=== PATIENT | female | born 1990 | race Caucasian/White ===

== ENCOUNTER → 2018-03-20 | Outpatient (CLI) | payer BC, OTHER ==
--- NOTE | 2018-03-20 16:27 | US ---
EXAMINATION TYPE: US venous doppler duplex LE DATE OF EXAM: 03/20/2018 7:19 AM COMPARISON: NONE CLINICAL HISTORY: G25.81 Restless leg syndrome. SIDE PERFORMED: Bilateral TECHNIQUE: The lower extremity deep venous system is examined utilizing real time linear array sonog raheem with graded compression, doppler sonography and color-flow sonography. VESSELS IMAGED: External Iliac Vein (EIV) Common Femoral Vein Deep Femoral Vein Greater Saphenous Vein * Femoral Vein Popliteal Vein Small Saphenous Vein * Proximal Calf Veins (* superficial vessels) Right Leg: Negative for DVT Left Leg: Negative for DVT IMPRESSION: 1. Bilateral lower extremity ultrasound negative for deep venous thrombosis.
== END | disposition home or self-care (01) ==
LOC: RADUSWWP 06:54
PROVIDERS: ATTEND Family Medicine
DX: G25.81 Restless legs syndrome (principal)
CPT/HCPCS: 93970

== ENCOUNTER → 2018-03-28 | Outpatient (CLI) | payer BC, OTHER ==
[2018-03-28 07:30] LABS: Basophils # (A) 0.1 k/uL (0-0.2); Basophils % (A) 1 %; Eosinophils # (A) 0.2 k/uL (0-0.7); Eosinophils % (A) 2 %; HCT 38.1 % (34.0-46.0); HGB 12.8 gm/dL (11.4-16.0); Lymphocytes # (A) 4.5 k/uL (1.0-4.8); Lymphocytes % (A) 43 %; MCH 30.1 pg (25.0-35.0); MCHC 33.6 g/dL (31.0-37.0); MCV 89.3 fL (80.0-100.0); Mean Platelet Volume 6.1; Monocytes # (A) 0.5 k/uL (0-1.0); Monocytes % (A) 4 %; Neutrophils # (A) 5.1 k/uL (1.3-7.7); Neutrophils % (A) 49 %; Platelet Count 349 k/uL (150-450); RBC 4.27 m/uL (3.80-5.40); RDW 13.1 % (11.5-15.5); WBC 10.5 k/uL (3.8-10.6)
[2018-03-28 11:06] LABS: Erythrocyte Sedimentation Rate 19 mm/hr (0-20)
[2018-03-28 11:18] LABS: Iron Saturation 18.18 (12.00-45.00)
[2018-03-28 11:26] LABS: Vitamin D 25 Hydroxy 19.2 ng/mL (30.0-100.0)
[2018-03-28 12:56] LABS: T4, Free (Free Thyroxine) 0.9 ng/dL (0.80-1.80)
[2018-03-28 13:49] LABS: Albumin 4.3 g/dL (3.80-4.90); Albumin/Globulin Ratio 1.79 (1.60-3.17); Anion Gap 6.7 mmol/L (4.00-12.00); C Reactive Protein 0.8 mg/dL (0.0-0.8); Calcium 9.2 mg/dL (8.7-10.3); Carbon Dioxide 27.3 mmol/L (21.6-31.8); Globulin 2.4 g/dL (1.6-3.3); LDL Cholesterol,Calculated 51.8 mg/dL (0.0-131.0); Potassium 4.2 mmol/L (3.5-5.5); Total Bilirubin 0.3 mg/dL (0.3-1.2); Total Protein 6.7 g/dL (6.2-8.2); VLDL Calculation 23.2 mg/dL (5.00-40.00)
== END ==
LOC: LABWHC1 06:45
PROVIDERS: ATTEND Nurse Practitioner Family
DX: Z00.00 Encounter for general adult medical examination without abnormal findings (principal); E55.9 Vitamin D deficiency, unspecified; G25.81 Restless legs syndrome; M25.50 Pain in unspecified joint
CPT/HCPCS: 36415; 80053; 80061; 82306; 82550; 82728; 83540; 83550; 83735; 84439; 84443; 85025; 85652; 86140

== ENCOUNTER 2020-01-16 06:11 | Emergency (ER) | payer BC, OTHER ==
--- NOTE | 2020-01-16 06:55 | ED ---
Chest Pain HPI - General Chief Complaint: Chest Pain Stated Complaint: Chest Pain, DIEGO Time Seen by Provider: 01/16/20 06:29 Source: patient, family, RN notes reviewed Mode of arrival: ambulatory Limitations: no limitations - History of Present Illness Initial Comments: This is a 29-year-old female presents emergency Department with chief complaint of chest discomfort. Patient states started around 11:00 last night. 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 Patient states she is scheduled for an echo and stress test. Patient states that she's had palpitations, elevated heart rate which she states she has an abnormal EKG because of it. Patient states that she has no history of PE or DVT. Patient states she has fibromyalgia and she was being worked up for lupus. Patient denies any chance no abdominal pain or swelling no leg pain or swelling patient appears chills no cough URI symptoms. She states she has a chest tightness type pain at this time is nonradiating - Related Data Home Medications Medication Instructions Recorded Confirmed Albuterol Sulfate [Proair Hfa] 1 - 2 puff INHALATION DAILY PRN 11/14/17 11/14/17 Cyclobenzaprine [Flexeril] 10 mg PO TID 11/14/17 11/14/17 Naproxen [Naprosyn] 500 mg PO Q12HR PRN 11/14/17 11/14/17 Pantoprazole Sodium [Protonix] 40 mg PO DAILY 11/14/17 11/14/17 SUMAtriptan SUCCINATE [Sumavel 6 mg SQ DAILY PRN 11/14/17 11/14/17 Dosepro] SUMAtriptan succinate [Sumatriptan 1 dose PO DAILY PRN 11/14/17 11/14/17 Succinate] Allergies Allergy/AdvReac Type Severity Reaction Status Date / Time bupropion [From Wellbutrin] Allergy Rash/Hives Verified 01/16/20 06:25 metronidazole [From Flagyl] Allergy Rash/Hives Verified 01/16/20 06:25 Review of Systems ROS Statement: Those systems with pertinent positive or pertinent negative responses have been documented in the HPI. ROS Other: All systems not noted in ROS Statement are negative. EKG Findings - EKG Comments: EKG Findings:: EKG performed at 6:34 normal sinus rhythm with rate of 79 MN 18 QRS 92 QT/QTC 384/440 Past Medical History Past Medical History: Asthma, GERD/Reflux, Neurologic Disorder Additional Past Medical History / Comment(s): MIGRAINES. IBS History of Any Multi-Drug Resistant Organisms: None Reported Past Surgical History: Cholecystectomy Past Anesthesia/Blood Transfusion Reactions: No Reported Reaction Past Psychological History: No Psychological Hx Reported Smoking Status: Never smoker Past Alcohol Use History: None Reported Past Drug Use History: None Reported - Past Family History Father Family Medical History: Cancer General Exam Limitations: no limitations General appearance: alert, in no apparent distress Head exam: Present: atraumatic, normocephalic, normal inspection Eye exam: Present: normal appearance, PERRL, EOMI. Absent: scleral icterus, conjunctival injection, periorbital swelling ENT exam: Present: normal exam, normal oropharynx, mucous membranes moist Neck exam: Present: normal inspection, full ROM. Absent: tenderness, meningi smus, lymphadenopathy Respiratory exam: Present: normal lung sounds bilaterally. Absent: respiratory distress, wheezes, rales, rhonchi, stridor Cardiovascular Exam: Present: regular rate, normal rhythm, normal heart sounds. Absent: systolic murmur, diastolic murmur, rubs, gallop, clicks GI/Abdominal exam: Present: soft, normal bowel sounds. Absent: distended, tenderness, guarding, rebound, rigid Extremities exam: Absent: pedal edema, calf tenderness Neurological exam: Present: alert, oriented X3 Skin exam: Present: warm, dry, intact, normal color. Absent: rash Course Vital Signs 01/16/20 06:15 Temperature 98.3 F Pulse Rate 84 Respiratory 20 Rate Blood Pressure 143/93 O2 Sat by Pulse 100 Oximetry Chest Pain MDM - MDM 29-year-old presented for chest pain. Patient did have x-ray which is unremarkable, labs did reveal mildly elevated d-dimer, CT was performed to rule out PE at this time which shows no evidence of PE. States his been having on and off symptoms for several months. Patient is scheduled for echo and stress test palpation. Patient has no major risk factors. Patient workup is negative including troponin, EKG and electrolytes. Patient states she feels comfortable discharge symptoms are resolving. Disposition Clinical Impression: Atypical chest pain Disposition: HOME SELF-CARE Condition: Stable Instructions (If sedation given, give patient instructions): Chest Pain (ED) Additional Instructions: Please return to the Emergency Department if symptoms worsen or any other concerns. Is patient prescribed a controlled substance at d/c from ED?: No Referrals: Raman Armando MD [Primary Care Provider] - 1-2 days Time of Disposition: 08:38
[2020-01-16 07:09] LABS: Basophils # (A) 0.1 k/uL (0-0.2); Basophils % (A) 1 %; Eosinophils # (A) 0.2 k/uL (0-0.7); Eosinophils % (A) 2 %; HCT 39.5 % (34.0-46.0); HGB 13.9 gm/dL (11.4-16.0); Lymphocytes # (A) 4.6 k/uL (1.0-4.8); Lymphocytes % (A) 41 %; MCH 30.6 pg (25.0-35.0); MCHC 35.1 g/dL (31.0-37.0); Monocytes # (A) 0.5 k/uL (0-1.0); Monocytes % (A) 4 %; Neutrophils # (A) 5.7 k/uL (1.3-7.7); Neutrophils % (A) 51 %; Platelet Count 340 k/uL (150-450); RBC 4.54 m/uL (3.80-5.40); RDW 13.3 % (11.5-15.5); WBC 11.2 k/uL (3.8-10.6)
[2020-01-16 07:14] LABS: ALT 23 U/L (4-34); AST 25 U/L (14-36); African American GFR (CKD) >90 (>60 ml/min/1.73 sqM); Albumin 4.4 g/dL (3.5-5.0); Alkaline Phosphatase 105 U/L (38-126); Anion Gap 8 mmol/L; Blood Urea Nitrogen 15 mg/dL (7-17); Carbon Dioxide 24 mmol/L (22-30); Chloride 104 mmol/L (98-107); Glucose 130 mg/dL (74-99); Lipase 224 U/L (23-300); Magnesium 2.1 mg/dL (1.6-2.3); Non-African American GFR(CKD) >90 (>60 ml/min/1.73 sqM); Potassium 3.6 mmol/L (3.5-5.1); Sodium 136 mmol/L (137-145); Total Bilirubin 0.4 mg/dL (0.2-1.3); Total Protein 7.6 g/dL (6.3-8.2)
--- NOTE | 2020-01-16 07:18 | XR ---
EXAMINATION TYPE: XR chest 2V DATE OF EXAM: 01/16/2020 COMPARISON: 07/17/2019 HISTORY: Chest pain TECHNIQUE: Frontal and lateral views of the chest are obtained. FINDINGS: There is no focal air space opacity. No evidence for pneumothorax. No pleural effusion. The cardiac silhouette size is within normal limits. The osseous structures are grossly intact. IMPRESSION: 1. No acute cardiopulmonary process.
[2020-01-16 07:24] LABS: INR 0.9 (<1.2)
[2020-01-16 07:25] LABS: Partial Thromboplastin Time 23.9 sec (22.0-30.0); Prothrombin Time 9.4 sec (9.0-12.0)
[2020-01-16 07:35] LABS: D-Dimer 0.83 mg/L FEU (<0.60)
--- NOTE | 2020-01-16 08:30 | CT ---
EXAMINATION TYPE: CT chest angio for PE DATE OF EXAM: 01/16/2020 COMPARISON: None HISTORY: SOB, chest pain CT DLP: 502.4 mGycm CONTRAST: CT chest with contrast and 3D reconstruction with MIP imaging is performed with IV Contrast, patient injected with 100 mL of Isovue 300. Contrast-enhanced CT of the chest was performed through the course of the pulmonary arteries with jacklyn g and mediastinal window settings submitted. 3D reconstruction with MIP imaging was also performed. PULMONARY ARTERIES: The pulmonary arteries and their major tributaries are patent. I do not see keke dence for sizable filling defect to suggest pulmonary embolic process. LUNGS: The lungs are clear and free of infiltrate. No evidence for atelectasis. No pulmonary nodule or mass is detected. No pleural effusion. MEDIASTINUM: Thoracic aorta is of normal caliber,however, evaluation is limited given timing of the contrast bolus. If there is concern for thoracic aortic pathology consider MELLISSA. Correlate clinicall y . The heart is not enlarged. No evidence for mediastinal mass. No mediastinal lymph nodes greater than 1cm. HILAR STRUCTURES: No evidence for mass. No hilar lymph nodes greater than 1 cm. UPPER ABDOMEN: No significant abnormality is seen. IMPRESSION: 1. No evidence for Pulmonary embolism at this time.
[2020-01-16 08:54] VITALS: BP 114/87; PULSE 70; RESP 18; TEMP 98
== END 2020-01-16 08:54 | disposition home or self-care (01) ==
LOC: EC 06:11
DX: R07.89 Other chest pain (principal); R79.89 Other specified abnormal findings of blood chemistry; J45.909 Unspecified asthma, uncomplicated; K21.9 Gastro-esophageal reflux disease without esophagitis; G43.909 Migraine, unspecified, not intractable, without status migrainosus; K58.9 Irritable bowel syndrome, unspecified; R00.2 Palpitations; M79.7 Fibromyalgia; R00.0 Tachycardia, unspecified; Z79.899 Other long term (current) drug therapy; Z79.51 Long term (current) use of inhaled steroids; Z79.1 Long term (current) use of non-steroidal anti-inflammatories (NSAID); Z88.8 Allergy status to other drugs, medicaments and biological substances; Z88.1 Allergy status to other antibiotic agents
CPT/HCPCS: 99285; 36415; 93005; 85379; 80053; 83690; 83735; 84484; 85025; 85610; 85730; 81025; 71046; 71275; Q9967

== ENCOUNTER → 2020-03-08 | Outpatient (CLI) | payer BC ==
[2020-03-08 09:35] LABS: Basophils # (A) 0.1 k/uL (0-0.2); Basophils % (A) 1 %; Eosinophils # (A) 0.1 k/uL (0-0.7); Eosinophils % (A) 0 %; HCT 39.4 % (34.0-46.0); HGB 13.1 gm/dL (11.4-16.0); Lymphocytes # (A) 5.7 k/uL (1.0-4.8); Lymphocytes % (A) 35 %; MCH 29.5 pg (25.0-35.0); MCHC 33.2 g/dL (31.0-37.0); MCV 88.8 fL (80.0-100.0); Mean Platelet Volume 6.9; Monocytes # (A) 0.9 k/uL (0-1.0); Monocytes % (A) 5 %; Neutrophils # (A) 9.3 k/uL (1.3-7.7); Neutrophils % (A) 57 %; Platelet Count 328 k/uL (150-450); RBC 4.44 m/uL (3.80-5.40); RDW 13.6 % (11.5-15.5); WBC 16.3 k/uL (3.8-10.6)
[2020-03-08 15:54] LABS: African American GFR (CKD) 115.5 (60.0-200.0); Albumin 4.4 g/dL (3.80-4.90); Albumin/Globulin Ratio 1.83 (1.60-3.17); Anion Gap 10.6 mmol/L (4.00-12.00); BUN/Creat Ratio 23.75 Ratio (12.00-20.00); Calcium 9.5 mg/dL (8.7-10.3); Carbon Dioxide 24.4 mmol/L (21.6-31.8); Chol/HDL Ratio 3.02; Globulin 2.4 g/dL (1.6-3.3); LDL Cholesterol,Calculated 59.6 mg/dL (0.0-131.0); Non-African American GFR(CKD) 99.6 (60.0-200.0); Potassium 4.1 mmol/L (3.5-5.5); Total Bilirubin 0.2 mg/dL (0.2-1.2); Total Protein 6.8 g/dL (6.2-8.2); VLDL Calculation 31.4 mg/dL (5.00-40.00)
== END | disposition home or self-care (01) ==
LOC: LABWHC1 07:22
PROVIDERS: ATTEND Nurse Practitioner Family
DX: Z00.01 Encounter for general adult medical examination with abnormal findings (principal); E55.9 Vitamin D deficiency, unspecified
CPT/HCPCS: 36415; 80053; 80061; 82306; 84439; 84443; 85025

== ENCOUNTER → 2023-04-03 | Outpatient (CLI) | payer BC, OTHER ==
[2023-04-04 02:41] LABS: HCT 38.1 % (37.2-46.3); HGB 12.1 g/dL (12.0-15.0); MCH 26.4 pg (27.0-32.0); MCHC 31.8 g/dL (32.0-37.0); Mean Platelet Volume 10.7 FL (9.5-12.2); NRBC Per 100 WBC 0 X 10*3/uL (0.00-0.01); Platelet Count 320 X 10*3/uL (140-440); RBC 4.59 X 10*6/uL (4.10-5.20); RDW 14.7 % (11.5-14.5); WBC 8.31 X 10*3/uL (4.50-10.00)
[2023-04-04 03:13] LABS: Blood Urea Nitrogen 9.5 mg/dL (9.0-27.0); C Reactive Protein <0.30 mg/dL (0.00-0.80)
[2023-04-04 03:25] LABS: Albumin 4.2 g/dL (3.8-4.9)
[2023-04-04 03:45] LABS: Erythrocyte Sedimentation Rate 17 mm/Hr (0-20)
[2023-04-04 04:22] LABS: Creatinine 24 Hour,Urine 1.02 g/24hr (0.80-1.80); Total Volume 24 Hour,Urine 950 mL
[2023-04-04 15:09] LABS: C-ANCA <1:20 Titer (<1:20)
[2023-04-04 16:28] LABS: Gamma Globulin 1.12 g/dL (0.70-1.50)
== END | disposition home or self-care (01) ==
LOC: LABWHC1 15:50
PROVIDERS: ATTEND Student in an Organized Health Care Education/Training Program
DX: G43.909 Migraine, unspecified, not intractable, without status migrainosus (principal); M54.2 Cervicalgia; R20.2 Paresthesia of skin; R20.0 Anesthesia of skin
CPT/HCPCS: 36415; 81050; 82570; 82607; 83036; 84156; 84165; 84520; 85027; 85652; 86038; 86140; 86255; 86334; 86780